=== PATIENT | female | born 1985 | race Caucasian/White ===

== ENCOUNTER 2016-09-04 17:36 | Emergency (ER) | payer MEDICAID ==
[~2016-09-04] VITALS: Ht 172.7 cm; Wt 83.9 kg
[2016-09-04 18:42] VITALS: BP 128/81
== END 2016-09-04 18:43 | disposition home or self-care (01) ==
LOC: ER 17:38
DX: Z76.0 Encounter for issue of repeat prescription (principal); F32.9 Major depressive disorder, single episode, unspecified
CPT/HCPCS: A4606; Z7610

== ENCOUNTER 2016-10-03 19:56 | Emergency (ER) | payer MEDICAID ==
[~2016-10-03] VITALS: Ht 170.2 cm; Wt 83.9 kg
[2016-10-03 20:03] VITALS: BP 122/65
== END 2016-10-03 20:45 | disposition home or self-care (01) ==
LOC: ER 20:08
DX: Z76.0 Encounter for issue of repeat prescription (principal); F31.9 Bipolar disorder, unspecified
CPT/HCPCS: 99283; A4606; Z7610